=== PATIENT | male | born 1950 | race Caucasian/White ===

== ENCOUNTER 2017-11-17 22:59 | Emergency (ER) | payer MEDICAID ==
[2017-11-17] MEDS ORDERED: HYDROmorphONE/DILAUDID 2 MG/ML INJ IVP ONE (23:51)
[2017-11-17] MEDS ORDERED: HYDROmorphONE/DILAUDID 1 MG/ML INJ ONE (23:54)
[2017-11-18] MEDS ORDERED: NS 1,000 ML IV ONE (00:02)
[2017-11-18] MEDS ORDERED: IOPAMIDOL (ISOVUE-300) 100 ML BTL ONE (00:11)
--- NOTE | 2017-11-18 00:51 | EDPHY ---
H & P Stated Complaint: rectal bleeding Time Seen by Provider: 11/17/17 23:39 HPI/ROS: HPI The patient presents brought in by ambulance for 2 episodes of bright red blood per rectum which occurred this evening. He had painful bowel movements which were mostly dark blood. This is associated with diffuse abdominal pain which is more on the left-hand side of his abdomen. He says he is recently status post cholecystectomy. He normally lives in [place] but is here in [facility]. Upon review of outside medical records, the patient was seen in the emergency department on November 14 had another hospital for abdominal pain with negative evaluation. REVIEW OF SYSTEMS Constitutional: No fever, no chills. Eyes: No discharge. ENT: No sore throat. Cardiovascular: No chest pain, no palpitations. Respiratory: No cough, no shortness of breath. Gastrointestinal: No abdominal pain, no vomiting. Genitourinary: No hematuria. Musculoskeletal: No back pain. Skin: No rashes. Neurological: No headache. PMHx: Diabetes, hypertension, COPD, recent cholecystectomy Soc Hx: Homeless, camping in [place] PHYSICAL General Appearance: Alert, no distress Eyes: Pupils equal and round no pallor or injection ENT, Mouth: Mucous membranes moist Respiratory: There are no retractions, lungs are clear to auscultation Cardiovascular: Regular rate and rhythm Gastrointestinal: Abdomen is soft and tender in the left upper and lower quadrants without rebound or guarding, no masses, bowel sounds normal Rectal: Stool in rectal vault is brown, no masses are palpable Neurological: A&O, moves all extremities Skin: Warm and dry, no rashes Musculoskeletal: Neck is supple non tender Extremities: symmetrical, full range of motion Psychiatric: Patient is oriented X 3, there is no agitation Source: Patient, EMS Exam Limitations: No limitations - Personal History Current Tetanus Diphtheria and Acellular Pertussis (TDAP): Unsure - Medical/Surgical History Hx Asthma: No Hx Chronic Respiratory Disease: Yes Hx Diabetes: Yes Hx Cardiac Disease: Yes Hx Renal Disease: No Hx Cirrhosis: Yes Hx Alcoholism: Yes Hx HIV/AIDS: No Hx Splenectomy or Spleen Trauma: No Other PMH: DM, HTN, COPD, neuropathy, s/p anisha, COPD - Social History Smoking Status: Current every day smoker Constitutional: Initial Vital Signs Temperature (C) 36.9 C 11/17/17 23:06 Heart Rate 66 11/17/17 23:06 Respiratory Rate 18 11/17/17 23:06 Blood Pressure 164/98 H 11/17/17 23:06 O2 Sat (%) 99 11/17/17 23:06 O2 Delivery Mode Room Air Allergies/Adverse Reactions: No Known Allergies Allergy (Unverified 04/20/14 04:36) Home Medications: Medication Instructions Recorded Patient Does Not Know 04/20/14 Medical Decision Making Differential Diagnosis: 66-year-old male with history of diabetes, COPD, hypertension presents brought in by ambulance for abdominal pain with bright red blood per rectum. No ongoing bleeding here. Rectal exam is unremarkable with no blood, only. Brown stool. He does have some abdominal tenderness. In the emergency department, IV line was established and patient received pain medication. Labs were checked and were unremarkable including hemoglobin. CT scan of abdomen was also unremarkable with no evidence of diverticulitis. The patient had no further pain in the emergency department. He was observed for several hours. The cause of his rectal bleeding is not entirely clear. On review of old records, he seeks care multiple hospitals in [place] and has been seen frequently for abdominal pain. I question if there is any secondary gain involved. He feels comfortable enough going home and will be discharged. Differential diagnosis includes diverticulitis, diverticulosis with bleed, colitis, AVM. - Data Points Laboratory Results: Laboratory Results 11/17/17 23:21 11/17/17 23:21 11/17/17 11/17/17 23:21 23:21 WBC 7.91 10^3/uL 10^3/uL (3.80-9.50) RBC 4.53 10^6/uL 10^6/uL (4.40-6.38) Hgb 14.2 g/dL g/dL (13.7-17.5) Hct 42.7 % % (40.0-51.0) MCV 94.3 fL fL (81.5-99.8) MCH 31.3 pg pg (27.9-34.1) MCHC 33.3 g/dL g/dL (32.4-36.7) RDW 13.6 % % (11.5-15.2) Plt Count 223 10^3/uL 10^3/uL (150-400) Sodium 142 mEq/L mEq/L (135-145) Potassium 4.0 mEq/L mEq/L (3.3-5.0) Chloride 106 mEq/L mEq/L (97-110) Carbon Dioxide 25 mEq/l mEq/l (22-31) Anion Gap 11 mEq/L mEq/L (8-16) BUN 20 mg/dL mg/dL (7-23) Creatinine 0.7 mg/dL mg/dL (0.7-1.3) Estimated GFR > 60 Glucose 92 mg/dL mg/dL (70-100) Calcium 9.5 mg/dL mg/dL (8.5-10.4) Total Bilirubin 0.5 mg/dL mg/dL (0.1-1.4) AST 26 IU/L IU/L (17-59) ALT 33 IU/L IU/L (21-72) Alkaline Phosphatase 86 IU/L IU/L (38-126) Total Protein 6.6 g/dL g/dL (6.3-8.2) Albumin 4.0 g/dL g/dL (3.5-5.0) Medications Given: Discontinued Medications Hydromorphone HCl (Dilaudid) 0.5 mg IVP EDNOW ONE Stop: 11/17/17 23:52 Last Admin: 11/17/17 23:56 Dose: 0.5 mg Sodium Chloride (Ns) 1,000 mls @ 0 mls/hr IV ONCE ONE PRN Reason: Wide Open Stop: 11/18/17 00:03 Last Admin: 11/18/17 00:03 Dose: 1,000 mls Departure - Departure Disposition: Home, Routine, Self-Care Clinical Impression: Abdominal pain Qualifiers: Abdominal location: generalized Qualified Code(s): R10.84 - Generalized abdominal pain Condition: Good Instructions: Acute Abdominal Pain (ED) Additional Instructions: Please follow-up with your regular doctor in the next 1-2 days. Referrals: [facility],. [Clinic] - As per Instructions
[2017-11-18 02:18] VITALS: BP 140/71
== END 2017-11-18 02:23 | disposition home or self-care (01) ==
LOC: EDUNIT#
DX: R10.84 Generalized abdominal pain (principal); E11.9 Type 2 diabetes mellitus without complications; I10 Essential (primary) hypertension; J44.9 Chronic obstructive pulmonary disease, unspecified; F17.200 Nicotine dependence, unspecified, uncomplicated; Z90.49 Acquired absence of other specified parts of digestive tract
CPT/HCPCS: 96374; J1170; Q9967

== ENCOUNTER 2018-08-15 15:04 | Emergency (ER) | payer OTHER ==
[2018-08-15 15:10] VITALS: BP 155/72
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
== END 2018-08-15 15:41 | disposition home or self-care (01) ==
DX: S09.90XA Unspecified injury of head, initial encounter (principal); S80.211A Abrasion, right knee, initial encounter; S00.31XA Abrasion of nose, initial encounter; J44.9 Chronic obstructive pulmonary disease, unspecified; I10 Essential (primary) hypertension; E11.9 Type 2 diabetes mellitus without complications; G62.9 Polyneuropathy, unspecified; Y04.8XXA Assault by other bodily force, initial encounter; Y92.59 Other trade areas as the place of occurrence of the external cause; Y99.9 Unspecified external cause status